=== PATIENT | female | born 1955 | race Hispanic/Latino ===

== ENCOUNTER → 2018-11-06 | Outpatient (CLI) | payer MEDICARE, OTHER | END | disposition home or self-care (01) | LOC: RAH 11:30 | PROVIDERS: ATTEND Internal Medicine Nephrology | DX: Z12.31 Encounter for screening mammogram for malignant neoplasm of breast (principal) | CPT/HCPCS: 77067 ==

== ENCOUNTER → 2019-11-08 | Outpatient (CLI) | payer MEDICARE, OTHER | END | disposition home or self-care (01) | LOC: RAH 08:21 | PROVIDERS: ATTEND Internal Medicine Nephrology | DX: Z12.31 Encounter for screening mammogram for malignant neoplasm of breast (principal); N64.89 Other specified disorders of breast | CPT/HCPCS: 77067 ==

== ENCOUNTER → 2020-11-07 | Outpatient (CLI) | payer MEDICARE, OTHER | END | disposition home or self-care (01) | LOC: RAH 09:01 | PROVIDERS: ATTEND Urology | DX: N20.0 Calculus of kidney (principal) | CPT/HCPCS: 74018; 76100 ==

== ENCOUNTER → 2020-11-20 | Outpatient (CLI) | payer MEDICARE, OTHER | END | disposition home or self-care (01) | LOC: RAH 09:07 | PROVIDERS: ATTEND Internal Medicine Nephrology | DX: Z12.31 Encounter for screening mammogram for malignant neoplasm of breast (principal) | CPT/HCPCS: 77067 ==

== ENCOUNTER → 2021-11-21 | Outpatient (CLI) | payer MEDICARE, OTHER | END | disposition home or self-care (01) | LOC: RAH 13:31 | PROVIDERS: ATTEND Internal Medicine Nephrology | DX: Z12.31 Encounter for screening mammogram for malignant neoplasm of breast (principal) | CPT/HCPCS: 77067 ==

== ENCOUNTER 2022-01-21 09:00 | Inpatient (IN) | payer MEDICARE, OTHER ==
[~2022-01-21] VITALS: Ht 154.9 cm; Wt 76.0 kg
[2022-01-21 10:38] LABS: BASOPHILS % (AUTO) 0.6 % (0.0-5.0); EOSINOPHILS % (AUTO) 0.8 % (0.0-8.0); HEMATOCRIT 44.5 % (36-48); LYMPHOCYTES % (AUTO) 24.4 % (21.0-51.0); MEAN CORPUSCULAR HEMOGLOBIN 28.2 pg (27.0-33.0); MEAN CORPUSCULAR HGB CONC 32.1 g/dL (32.0-36.0); MEAN CORPUSCULAR VOLUME 87.8 fL (79-99); PLATELET COUNT (AUTO) 215 K/uL (130-400); RED BLOOD CELL COUNT(AUTO) 5.07 MIL/uL (4.00-5.50); RED CELL DISTRIBUTION WIDTH 12.8 % (11.0-15.5); WHITE BLOOD COUNT (AUTO) 5.3 K/uL (4.8-10.8)
[2022-01-21 10:55] LABS: ALBUMIN 3.8 g/dL (3.5-5.0); POTASSIUM 4.6 mmol/L (3.5-5.1); TOTAL PROTEIN, SERUM 7.2 g/dL (6.0-8.3)
[2022-01-22 10:30] VITALS: BP 121/71
[2022-01-22] MEDS ORDERED: ALLO100T PO (11:17)
[2022-01-22] MEDS ORDERED: SIMV-43 PO (11:17)
[2022-01-22] MEDS ORDERED: OMEP40CA21 PO (11:17)
[2022-01-22] MEDS ORDERED: ALPR0.25 PO (11:17)
[2022-01-22] MEDS ORDERED: DENO60DI SQ (11:17)
[2022-01-22] MEDS ORDERED: AEC81 PO (11:17)
[2022-01-22] MEDS ORDERED: SEMA1PEN3 SQ (11:17)
[2022-01-22] MEDS ORDERED: POTA-277 PO (11:17)
[2022-01-22] MEDS ORDERED: SYNTHROID PO (11:17)
[2022-01-22] MEDS ORDERED: CETI10CA5 PO (11:17)
[2022-01-23] VITALS (23 sets, daily range): BP systolic 115–144; BP diastolic 49–77
[2022-01-23] MEDS ORDERED: BUPIVACAINE/PF 0.25% 30ML VIAL IJ ONE (05:12)
[2022-01-23] MEDS ORDERED: 0.9%NACL 1000ML 1,000 ML IV ONE (07:05)
[2022-01-23] MEDS ORDERED: FAMOTIDINE 20MG VIAL IV ONE (07:19)
[2022-01-23] MEDS ORDERED: MIDAZOLAM HCL 1 MG/ML 2ML VIAL ONE ×2 (07:20→08:52)
[2022-01-23] MEDS ORDERED: PROPOFOL 10 MG/ML 20ML VIAL IV ONE ×2 (07:28→08:52)
[2022-01-23] MEDS ORDERED: LIDOCAINE PF 100MG/5ML (2%) SYRINGE 5ML ONE (07:28)
[2022-01-23] MEDS ORDERED: FENTANYL CITRATE PF 50 MCG/1 ML 2ML VIAL ONE ×2 (07:28→10:32)
[2022-01-23] MEDS ORDERED: GLYCOPYRROLATE 1 MG/5 ML SYRINGE ONE (07:28)
[2022-01-23] MEDS ORDERED: ROCURONIUM 10MG/1ML SYR 10 MG/ML ML ONE ×3 (07:28→09:46)
[2022-01-23] MEDS ORDERED: PHENYLEPHRINE HCL 10 MG/ML 1ML VIAL IV ONE (07:28)
[2022-01-23] MEDS ORDERED: NOREPINEPHRINE BITARTRATE 1 MG/1 ML ML IV ONE (07:29)
[2022-01-23] MEDS ORDERED: METRONIDAZOLE 500MG/100ML BAG 100 ML IVPB SCH (07:30)
[2022-01-23] MEDS ORDERED: CEFAZOLIN SODIUM 1 GM VIAL IVP SCH (07:30)
[2022-01-23] MEDS ORDERED: PHARMACY COMMUNICATION MISC SCH (07:30)
[2022-01-23] MEDS ORDERED: CEFAZOLIN SODIUM 2 GM VIAL IVP ONE (07:57)
[2022-01-23] MEDS ORDERED: ONDANSETRON 4MG INJ ONE ×2 (08:40→08:53)
[2022-01-23] MEDS ORDERED: FENTANYL CITRATE PF 50 MCG/1 ML 5ML AMP IV ONE (08:53)
[2022-01-23] MEDS ORDERED: DEXAMETHASONE SOD PHOSPHATE 10MG/ML 1ML VIAL ONE (09:38)
[2022-01-23] MEDS ORDERED: EPHEDRINE SULFATE 50 MG/ML AMPULE ONE (10:00)
[2022-01-23] MEDS ORDERED: NEOSTIGMINE 5MG/5ML SYR IV ONE (10:29)
[2022-01-23] MEDS ORDERED: HYDROCODONE/ACETAMINOPHEN 7.5/325 MG 15 ML UDCUP PO PRN (11:00)
[2022-01-23] MEDS ORDERED: PROCHLORPERAZINE 10MG/2ML INJ IV PRN (11:00)
[2022-01-23] MEDS ORDERED: ONDANSETRON 4MG INJ IVP PRN (11:00)
[2022-01-23] MEDS ORDERED: MORPHINE 2 MG SYG IVP PRN (11:00)
[2022-01-23] MEDS ORDERED: HYDROMORPHONE 1 MG INJ ONE (11:26)
[2022-01-23] MEDS: 1/2NS+20MEQ KCL/1000ML 1,000 ML IV SCH ×2 (12:56→22:55)
[2022-01-23] MEDS: ENOXAPARIN SODIUM 30 MG/0.3 ML SQ SCH ×2 (13:16→22:55)
[2022-01-23] MEDS: KETOROLAC 30MG VIAL (30MG/ML) IV PRN (17:00)
[2022-01-24] VITALS: BP 130/61
[2022-01-24 04:00] VITALS: BP 114/54
[2022-01-24 08:00] VITALS: BP 115/64
[2022-01-24] MEDS: KETOROLAC 30MG VIAL (30MG/ML) IV PRN ×2 (08:05→18:22)
[2022-01-24] MEDS: 1/2NS+20MEQ KCL/1000ML 1,000 ML IV SCH ×3 (10:30→13:40)
[2022-01-24] MEDS: ENOXAPARIN SODIUM 30 MG/0.3 ML SQ SCH (10:32)
[2022-01-24 11:27] VITALS: BP 121/75
[2022-01-24] MEDS ORDERED: SIMETHICONE 40 MG/0.6 ML ML PO PRN (15:00)
[2022-01-24 20:00] VITALS: BP 138/74
[2022-01-25] VITALS: BP 143/62
[2022-01-25] MEDS: ENOXAPARIN SODIUM 30 MG/0.3 ML SQ SCH ×2 (00:17→11:25)
[2022-01-25] MEDS: 1/2NS+20MEQ KCL/1000ML 1,000 ML IV SCH (02:46)
[2022-01-25 03:30] VITALS: BP 139/65
[2022-01-25 08:30] VITALS: BP 151/77
[2022-01-25] MEDS ORDERED: DiphenhydrAMINE HCL 50 MG/ML VIAL IV PRN (10:00)
[2022-01-25 11:20] VITALS: BP 134/67
[2022-01-26] MEDS ORDERED: LEVOTHYROXINE 150 MCG TABLET PO SCH (06:30)
== END 2022-01-25 13:45 | disposition home or self-care (01) | DRG 328 ==
LOC: DAHIP 01-23 06:29 → 4BH 01-23 12:12 → 4AH 01-23 12:51
PROVIDERS: ADMIT Surgery; ATTEND Surgery
PROC: 0D164ZA Bypass Stomach to Jejunum, Percutaneous Endoscopic Approach (ICD-10-PCS; 2022-01-23)
PROC: 0BQT4ZZ Repair Diaphragm, Percutaneous Endoscopic Approach (ICD-10-PCS; principal; 2022-01-23 07:56)
PROC: 0DJ08ZZ Inspection of Upper Intestinal Tract, Via Natural or Artificial Opening Endoscopic (ICD-10-PCS; 2022-01-23 07:56)
DX: K44.9 Diaphragmatic hernia without obstruction or gangrene (principal); K21.9 Gastro-esophageal reflux disease without esophagitis; Z20.822 Contact with and (suspected) exposure to COVID-19; Z98.84 Bariatric surgery status
CPT/HCPCS: 36415; 43235; 80053; 82948; 85025; 86850; 86900; 86901; 87426; 93005; G0378; J0690; J1100; J1170; J1650; J1885; J2001; J2250; J2370; J2405; J2704; J2710; J3010; J3480; J3490; J7030; J7120

== ENCOUNTER → 2022-11-22 | Outpatient (CLI) | payer MEDICARE, OTHER ==
[~2022-11-22] MED LIST: AEC81 PO; ALLO100T PO; ALPR0.25 PO; CETI10CA5 PO; DENO60DI SQ; OMEP40CA21 PO; SIMV-43 PO; SYNTHROID PO
== END | disposition home or self-care (01) ==
LOC: RAH 09:02
PROVIDERS: ATTEND Internal Medicine Nephrology
DX: Z12.31 Encounter for screening mammogram for malignant neoplasm of breast (principal)
CPT/HCPCS: 77067

== ENCOUNTER → 2023-11-26 | Outpatient (CLI) | payer MEDICARE, OTHER | END | disposition home or self-care (01) | LOC: RAH 07:25 | PROVIDERS: ATTEND Internal Medicine Nephrology | DX: Z12.31 Encounter for screening mammogram for malignant neoplasm of breast (principal); R92.323 Mammographic fibroglandular density, bilateral breasts | CPT/HCPCS: 77067 ==

== ENCOUNTER → 2024-11-26 | Outpatient (CLI) | payer MEDICARE, OTHER | END | disposition home or self-care (01) | LOC: RAH 14:55 | PROVIDERS: ATTEND Internal Medicine Nephrology | DX: Z12.31 Encounter for screening mammogram for malignant neoplasm of breast (principal) | CPT/HCPCS: 77067 ==